=== PATIENT | female | born 1990 | race Caucasian/White ===

== ENCOUNTER 2024-06-09 20:43 | Emergency (ER) | payer MEDICAID, SELFPAY ==
[2024-06-09 20:50] VITALS: BP 118/76; PULSE 84; TEMP 36.8; O2SAT 99; BMI 26.4
--- NOTE | 2024-06-09 21:10 | ED.GENADUL1 ---
HPI HPI - General Adult General Chief complaint: Abdominal Pain Stated complaint: ABDOMINAL PAIN Time Seen by Provider: 06/09/24 20:51 Source: patient Source information: spouse Mode of arrival: walk-in History of Present Illness HPI narrative: 34-year-old female presents to the emergency department for a chief complaint of abdominal pain. It is in her right lower quadrant and it started 2 days ago abruptly. She think she may have ruptured another cyst. She has had that occur several times and has had at least 3 surgeries for that issue. The last one was about 2 years ago. There is been no trauma or documented fever. No constipation dysuria or diarrhea. The pain is continuous. Related Data Previous Rx's ?Medication ?Instructions ?Recorded acetaminophen 300 mg-codeine 30 mg 1 tab PO Q6H PRN pain 5 days #20 06/09/24 tablet tabs ibuprofen 800 mg tablet 800 mg PO Q8H PRN pain #20 tabs 06/09/24 Allergies Allergy/AdvReac Type Severity Reaction Status Date / Time No Known Drug Allergies Allergy Verified 06/09/24 20:58 Opioid HPI Opioid Management Most Recent Opioid Data: No Data to Display Review of Systems ROS Narrative A ten point review of systems is negative except as noted above. PFSH PFSH Social History Little interest or pleasure in doing things: not at all Feeling down, depressed, or hopeless: not at all Exam Narrative Exam Narrative: Nurses note and vital signs reviewed and patient is not hypoxic. General: The patient appears well and in no apparent distress. Patient is resting comfortably on cart. Skin: Warm, dry, no pallor noted. There is no rash noted. Head: Normocephalic, atraumatic Eye: Normal conjunctiva, no drainage Ears, Nose, Mouth, and Throat: oral mucosa is moist. Nares patent. Cardiovascular: Regular Rate and Rhythm Respiratory: Patient is in no distress, no accessory muscle use, lungs are clear to auscultation, no wheezing, rales or rhonchi Back: non-tender GI: Mild tenderness present in the right lower quadrant without mass or distention. No tenderness elsewhere. Musculoskeletal: The patient has no evidence of calf tenderness, no pitting edema, symmetrical pulses noted bilaterally Neurological: A&O, normal speech Psychiatric: Cooperative Constitutional Vital Signs, click to edit/add: Last Vital Signs Temp 98.3 F 06/09/24 20:50 Pulse 84 06/09/24 20:50 Resp 14 06/09/24 20:50 BP 118/76 06/09/24 20:50 Pulse Ox 99 06/09/24 20:50 O2 Del Method Room Air 06/09/24 20:50 Course Vital Signs Vital signs: Vital Signs Temperature 98.3 F 06/09/24 20:50 Pulse Rate 84 06/09/24 20:50 Respiratory Rate 14 06/09/24 20:50 Blood Pressure 118/76 06/09/24 20:50 Pulse Oximetry 99 06/09/24 20:50 Oxygen Delivery Method Room Air 06/09/24 20:50 Temperature 98.3 F 06/09/24 20:50 Pulse Rate 84 06/09/24 20:50 Respiratory Rate 14 06/09/24 20:50 Blood Pressure 118/76 06/09/24 20:50 Pulse Oximetry 99 06/09/24 20:50 Oxygen Delivery Method Room Air 06/09/24 20:50 Medical Decision Making MDM Narrative Medical decision making narrative: CT scan shows right ovarian cyst. No evidence is present of ruptured cyst. She she has already had an appendectomy and there is no evidence of kidney stone. 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 Treatment diagnosis and follow-up were discussed with the patient. Differential Diagnosis Differential Diagnosis: Ovarian cyst, ruptured ovarian cyst, UTI, ectopic Lab Data Lab results reviewed: Yes I reviewed the patient's lab results Labs: Lab Results 06/09/24 06/09/24 Range/Units 21:00 22:00 WBC 7.0 (4.0-11.0) 10^3/uL RBC 4.75 (4.20-5.40) 10^6/uL Hgb 14.1 (12.0-16.0) g/dL Hct 42.9 (36.0-48.0) % MCV 90.3 (81.0-99.0) fL MCH 29.7 (26.7-34.0) pg MCHC 32.9 (29.9-35.2) g/dL RDW 14.1 (11.0-15.0) % Plt Count 224 (150-450) 10^3/uL MPV 11.5 (9.5-13.5) fL Neut % (Auto) 40.5 L (43.0-75.0) % Lymph % (Auto) 48.0 (20.5-60.0) % Peach % (Auto) 8.0 (1.7-12.0) % Eos % (Auto) 2.3 (0.9-7.0) % Baso % (Auto) 1.1 (0.2-2.0) % Neut # (Auto) 2.8 (1.4-6.5) 10^3/uL Lymph # (Auto) 3.4 (1.2-3.8) 10^3/uL Peach # (Auto) 0.6 (0.3-0.8) 10^3/uL Eos # (Auto) 0.2 (0.0-0.7) 10^3/uL Baso # (Auto) 0.1 (0.0-0.1) 10^3/uL Abs Immat Gran (auto) 0.01 (0.00-0.03) 10^3/uL Imm/Tot Granulo (auto) 0.1 (0.0-0.5) % Sodium 140 (136-145) mmol/L Potassium 4.2 (3.5-5.1) mmol/L Chloride 105 (98-107) mmol/L Carbon Dioxide 27.8 (21.0-32.0) mmol/L Anion Gap 11.4 BUN 11.0 (7.0-18.0) mg/dL Creatinine 0.86 (0.55-1.02) mg/dL Est GFR ( Amer) >60 (>=60 mL/min/1.73m^2) Est GFR (Non-Af Amer) >60 (>=60 mL/min/1.73m^2) BUN/Creatinine Ratio 12.8 Glucose 91 (74-106) mg/dL Calcium 9.0 (8.5-10.1) mg/dL Serum HCG, Qual Negative (NEGATIVE) Urine Color Yellow (YELLOW) Urine Clarity Clear (CLEAR) Urine pH 6.5 (5.0-9.0) Ur Specific [place] 1.020 (1.005-1.025) Urine Protein Negative (NEG/TRACE) mg/dL Urine Glucose (UA) Negative (NEGATIVE) mg/dL Urine Ketones Trace A (NEGATIVE) mg/dL Urine Occult Blood Large A (NEGATIVE) Urine Nitrite Negative (NEGATIVE) Urine Bilirubin Negative (NEGATIVE) Urine Urobilinogen 1.0 (0.2-1.0) EU/dL Ur Leukocyte Esterase Negative (NEGATIVE) Urine RBC 5-10 A (0-2) #/HPF Urine WBC 0-2 A (NONE SEEN) #/HPF Ur Squamous Epith Cells Few A (NONE/RARE) #/LPF Urine Crystals Seen A (None Seen) #/HPF Amorphous Sediment Moderate Urine Bacteria None seen (NONE SEEN) #/HPF Urine Casts None seen (NONE SEEN) #/LPF Urine Mucus Small A (NONE SEEN) Ur Culture Indicated? No Imaging Data CT scan - abdomen: Radiologist's impression: Nonobstructive left nephrolithiasis, small cyst lateral to the right ovary measures 2.7 cm in diameter, absent appendix, no free fluid or free air Discharge Plan Discharge Chief Complaint: Abdominal Pain Clinical Impression: Ovarian cyst Patient Disposition: Home, Self-Care Time of Disposition Decision: 23:26 Condition: Good Mode of Transportation: Private Vehicle Prescriptions / Home Meds: New acetaminophen-codeine 300-30 mg tablet 1 tab PO Q6H PRN (Reason: pain) 5 Days Qty: 20 0RF ibuprofen 800 mg tablet 800 mg PO Q8H PRN (Reason: pain) Qty: 20 0RF Print Language: Turkish Instructions: Ovarian Cyst (ED) Additional Instructions: Follow-up with your oncologist. Referrals: DUARTE LYNCH [Primary Care Provider] - 1 week
[2024-06-09 21:14] LABS: Bilirubin Urine NEGATIVE (NEGATIVE); Blood Urine LARGE (NEGATIVE); Clarity Urine CLEAR (CLEAR); Color Urine YELLOW (YELLOW); Glucose Urine UA NEGATIVE (NEGATIVE); Ketones Urine TRACE mg/dL (NEGATIVE); Leukocyte Esterase Urine NEGATIVE (NEGATIVE); Nitrite Urine NEGATIVE (NEGATIVE); Protein Urine NEGATIVE (NEG/TRACE); pH Urine 6.5 (5.0-9.0)
[2024-06-09 21:21] LABS: Amorphous Sediment Urine MODERATE; Bacteria Urine NONE SEEN #/HPF (NONE SEEN); Cast Seen? NONE SEEN #/LPF (NONE SEEN); Crystals Seen? Seen #/HPF (None Seen); Mucus Urine SMALL (NONE SEEN); Squamous Epithelial Cell Urine FEW #/LPF (NONE/RARE); Urine Culture Indicated NO; WBC Urine 0-2 #/HPF (NONE SEEN)
[2024-06-09 22:08] LABS: Basophils Absolute Auto 0.1 10^3/uL (0.0-0.1); Basophils Percent Auto 1.1 % (0.2-2.0); Eosinophils Absolute Auto 0.2 10^3/uL (0.0-0.7); Eosinophils Percent Auto 2.3 % (0.9-7.0); Hematocrit 42.9 % (36.0-48.0); Hemoglobin 14.1 g/dL (12.0-16.0); Immature Granulocytes Abs Auto 0.01 10^3/uL (0.00-0.03); Immature Granulocytes Pct Auto 0.1 % (0.0-0.5); Lymphocytes Absolute Auto 3.4 10^3/uL (1.2-3.8); Mean Corpuscular HGB Conc 32.9 g/dL (29.9-35.2); Mean Corpuscular Hemoglobin 29.7 pg (26.7-34.0); Mean Corpuscular Volume 90.3 fL (81.0-99.0); Mean Platelet Volume 11.5 fL (9.5-13.5); Monocytes Absolute Auto 0.6 10^3/uL (0.3-0.8); Neutrophils Absolute Auto 2.8 10^3/uL (1.4-6.5); Neutrophils Percent Auto 40.5 % (43.0-75.0); Platelet Count 224 10^3/uL (150-450); Red Blood Count 4.75 10^6/uL (4.20-5.40); Red Cell Distribution Width 14.1 % (11.0-15.0)
[2024-06-09 22:16] LABS: Anion Gap 11.4; BUN Creatinine Ratio 12.8; Carbon Dioxide 27.8 mmol/L (21.0-32.0); Chloride 105 mmol/L (98-107); Estimated GFR (African America >60 (>=60 mL/min/1.73m^2); Estimated GFR (Non-African Ame >60 (>=60 mL/min/1.73m^2); Glucose 91 mg/dL (74-106); Potassium 4.2 mmol/L (3.5-5.1); Sodium 140 mmol/L (136-145)
[2024-06-09 22:17] LABS: HCG Qualitative NEGATIVE (NEGATIVE); Internal Control Within Normal Limits
[2024-06-09] MEDS: KETOROLAC TROMETHAMINE 30 MG/ML VIAL IVP (22:23)
[2024-06-09] MEDS: MORPHINE SULFATE 4 MG/ML VIAL IV (23:21)
== END 2024-06-09 23:38 | disposition home or self-care (01) ==
PROVIDERS: Emergency Provider Emergency Medicine; PCP Internal Medicine
DX: N83.201 Unspecified ovarian cyst, right side (principal); N83.202 Unspecified ovarian cyst, left side; Z90.49 Acquired absence of other specified parts of digestive tract
CPT/HCPCS: 36415; 74177; 80048; 81001; 84484; 84703; 85025; 96374; 96375; 99285; J1885; J2270; Q9967